=== PATIENT | female | born 1945 | race Caucasian/White ===

== ENCOUNTER → 2017-03-15 | Outpatient (CLI) | payer MEDICARE, BC ==
[2016-02-11 13:45] VITALS: BP 148/79
[~2017-03-15] MED LIST: ANTIVERT12.5 M1 PO; CRANBERRY 100 M1 SGL PO; DAILY VITE1 TA1 PO; DETROL PO; MELOXICAM15 MG PO; MELOXICAM7.5 MG PO; NATURAL E400 IU PO; NEURONTIN300 M1 PO; NEXIUM20 MG PO; NEXIUM40 MG PO; OMEPRAZOLE40 MG PO; SERTRALINE50 MG PO; SIMVASTATIN20 MG PO; VALIUM 5MG T5 MG/TAB PO; VITAMIN D1000 IU PO; ZESTORETIC 10-1 EACH PO; ZOFRAN ODT8 M1 PO
== END ==
LOC: RAD 10:58
DX: R42 Dizziness and giddiness (principal); R11.11 Vomiting without nausea

== ENCOUNTER 2017-04-01 01:42 | Emergency (ER) | payer MEDICARE, BC ==
[~2017-04-01] VITALS: Ht 175.3 cm; Wt 105.5 kg
[~2017-04-01 01:42] MED LIST changes: -OMEPRAZOLE40 MG PO; -ZESTORETIC 10-1 EACH PO
[2017-04-01] MEDS ORDERED: ZESTORETIC 10-1 EACH PO (02:31)
[2017-04-01] MEDS ORDERED: OMEPRAZOLE40 MG PO (02:32)
[2017-04-01 03:34] VITALS: BP 145/63
== END 2017-04-01 03:34 | disposition other institution (70) ==
LOC: ED 01:42
DX: K85.90 Acute pancreatitis without necrosis or infection, unspecified (principal); K21.9 Gastro-esophageal reflux disease without esophagitis; I10 Essential (primary) hypertension
CPT/HCPCS: J2270; J2405

== ENCOUNTER 2017-04-01 03:34 | Inpatient (IN) | payer MEDICARE, BC ==
[2017-04-01] VITALS (7 sets, daily range): BP systolic 133–168; BP diastolic 57–71
[~2017-04-01] VITALS: Ht 172.7 cm; Wt 105.5 kg
[~2017-04-01 03:34] MED LIST changes: +OMEPRAZOLE40 MG PO; +ZESTORETIC 10-1 EACH PO
[2017-04-02 02:40] VITALS: BP 147/66
[2017-04-02 06:25] VITALS: BP 175/73
[2017-04-02 11:15] VITALS: BP 168/75
[2017-04-02 15:11] VITALS: BP 159/71
[2017-04-02 18:13] VITALS: BP 167/66
[2017-04-02 23:39] VITALS: BP 159/74
[2017-04-03 03:14] VITALS: BP 144/71
[2017-04-03 06:32] VITALS: BP 161/80
== END 2017-04-03 09:45 | disposition home or self-care (01) | DRG 444 ==
LOC: MED/SURG 03:34
PROVIDERS: ADMIT Family Medicine
DX: K80.71 Calculus of gallbladder and bile duct without cholecystitis with obstruction (principal); K85.10 Biliary acute pancreatitis without necrosis or infection; K21.9 Gastro-esophageal reflux disease without esophagitis; I10 Essential (primary) hypertension; G62.9 Polyneuropathy, unspecified
CPT/HCPCS: C9113; J2270; J7030; Q9967

== ENCOUNTER → 2017-04-04 | Outpatient (CLI) | payer MEDICARE, BC ==
[2017-04-03 06:32] VITALS: BP 161/80
== END ==
LOC: RAD 03-28 07:00
DX: R42 Dizziness and giddiness (principal); R11.10 Vomiting, unspecified
CPT/HCPCS: A9579

== ENCOUNTER → 2017-05-08 | Outpatient (CLI) | payer MEDICARE, BC | LOC: LAB 07:32 | DX: G62.9 Polyneuropathy, unspecified (principal) ==

== ENCOUNTER → 2017-06-26 | Outpatient (CLI) | payer MEDICARE, BC | LOC: LAB 16:10 | DX: R73.02 Impaired glucose tolerance (oral) (principal) ==

== ENCOUNTER → 2017-11-13 | Outpatient (CLI) | payer MEDICARE, BC | LOC: RAD 11:38 | DX: Z12.31 Encounter for screening mammogram for malignant neoplasm of breast (principal) ==

== ENCOUNTER → 2017-11-14 | Outpatient (CLI) | payer MEDICARE, BC ==
[2017-11-14 09:07] LABS: HEMATOCRIT 45.5 % (37.0-47.0); HEMOGLOBIN 14.7 g/dL (12.5-16.0); MEAN CELL VOLUME 95 fl (78-100); MEAN CORPUSCULAR HEMOGLOBIN 31 pg (27-31); MEAN CORPUSCULAR HGB CONC 32 g/dL (33-37); MEAN PLATELET VOLUME 10.1 fl (7.4-10.4); PLATELET COUNT 258 K/mm3 (130-400); RED BLOOD COUNT 4.81 M/mm3 (4.10-5.30); RED CELL DISTRIBUTION WIDTH 12.8 % (11.5-14.5); WHITE BLOOD COUNT 5.2 K/mm3 (4.8-10.8)
[2017-11-14 09:22] LABS: ALBUMIN 4.2 g/dL (3.5-5.0); BUN/CREATININE RATIO 19.5 (6.0-26.0); CALCIUM 9.5 mg/dL (8.4-10.2); POTASSIUM 4.1 mmol/L (3.6-5.0); TOTAL BILIRUBIN 0.5 mg/dL (0.2-1.3); TOTAL PROTEIN 7.1 g/dL (6.3-8.2)
[2017-11-14 09:31] LABS: LYMPHOCYTE 21 % (20-51); MONOCYTE 12 % (3-10); NEUTROPHILS 60 % (42-75)
== END ==
LOC: LAB 08:36
PROVIDERS: Nurse Practitioner Family
DX: R73.02 Impaired glucose tolerance (oral) (principal); E78.2 Mixed hyperlipidemia; K21.9 Gastro-esophageal reflux disease without esophagitis; G62.9 Polyneuropathy, unspecified

== ENCOUNTER → 2018-03-20 | Outpatient (CLI) | payer MEDICARE, BC ==
[2018-03-21 01:23] LABS: T3 TOTAL 110 ng/dL (87-178)
== END ==
LOC: LAB 11:11
PROVIDERS: Nurse Practitioner Family
DX: R25.1 Tremor, unspecified (principal)

== ENCOUNTER → 2018-06-27 | Outpatient (CLI) | payer MEDICARE, BC | LOC: RAD 15:05 | DX: M19.011 Primary osteoarthritis, right shoulder (principal) ==

== ENCOUNTER → 2018-06-28 | Outpatient (CLI) | payer MEDICARE, BC ==
[2018-06-28 08:03] LABS: EOS # 0.2 (0.04-0.40); EOS % 4.1 % (1.0-5.0); HEMATOCRIT 42.8 % (37.0-47.0); HEMOGLOBIN 14.3 g/dL (12.5-16.0); LYMPH# 1.3 (1.50-4.00); MEAN CELL VOLUME 94 fl (78-100); MEAN CORPUSCULAR HEMOGLOBIN 31 pg (27-31); MEAN CORPUSCULAR HGB CONC 33 g/dL (33-37); MEAN PLATELET VOLUME 9.8 fl (7.4-10.4); MONO # 0.5 (0.20-0.80); NEU # 2.6 (1.40-6.50); PLATELET COUNT 252 K/mm3 (130-400); RED BLOOD COUNT 4.55 M/mm3 (4.10-5.30); RED CELL DISTRIBUTION WIDTH 12.9 % (11.5-14.5); WHITE BLOOD COUNT 4.6 K/mm3 (4.8-10.8)
[2018-06-28 08:11] LABS: ALBUMIN 4.1 g/dL (3.5-5.0); CALCIUM 9.2 mg/dL (8.4-10.2); TOTAL BILIRUBIN 0.7 mg/dL (0.2-1.3); TOTAL PROTEIN 6.8 g/dL (6.3-8.2)
== END ==
LOC: LAB 07:37
PROVIDERS: Physician Assistant
DX: M25.511 Pain in right shoulder (principal); N95.1 Menopausal and female climacteric states; R06.09 Other forms of dyspnea

== ENCOUNTER → 2018-07-05 | Outpatient (CLI) | payer MEDICARE, BC ==
[~2018-07-05] VITALS: Ht 172.7 cm; Wt 109.1 kg
[~2018-07-05] MED LIST changes: +AMOXICILLIN 50500 MG PO; +CELEBREX 1100 MG/CAP PO; +MOTION SICKNESS25 M5 PO; +SERTRALINE HYD100 MG PO; +SIMVASTATIN20 M1 PO; +VITAMIN E100 UNI1 PO
[2018-07-05 14:23] VITALS: BP 122/69
== END ==
LOC: AMSURD 14:03
DX: I10 Essential (primary) hypertension (principal); E78.2 Mixed hyperlipidemia; K21.9 Gastro-esophageal reflux disease without esophagitis; R13.10 Dysphagia, unspecified; R06.09 Other forms of dyspnea; M25.511 Pain in right shoulder; G89.29 Other chronic pain; M19.90 Unspecified osteoarthritis, unspecified site

== ENCOUNTER → 2018-07-25 | Outpatient (CLI) | payer MEDICARE, BC ==
[2018-07-05 14:23] VITALS: BP 122/69
[2018-07-25 16:03] LABS: HEMATOCRIT 45.8 % (37.0-47.0); HEMOGLOBIN 15.1 g/dL (12.5-16.0); RED BLOOD COUNT 4.97 M/mm3 (4.10-5.30); WHITE BLOOD COUNT 5.5 K/mm3 (4.8-10.8)
[2018-07-25 16:11] LABS: CALCIUM 9.4 mg/dL (8.4-10.2); POTASSIUM 3.9 mmol/L (3.6-5.0)
== END ==
LOC: LAB 15:45
PROVIDERS: Internal Medicine Cardiovascular Disease
DX: Z01.812 Encounter for preprocedural laboratory examination (principal); R06.02 Shortness of breath

== ENCOUNTER → 2018-09-03 | Day surgery (SDC) | payer MEDICARE, BC ==
[2018-07-05 14:23] VITALS: BP 122/69
== END ==
LOC: MSO 09:34
DX: K22.2 Esophageal obstruction (principal); K21.9 Gastro-esophageal reflux disease without esophagitis; K44.9 Diaphragmatic hernia without obstruction or gangrene
CPT/HCPCS: J2704; J7120

== ENCOUNTER → 2018-10-25 | Outpatient (CLI) | payer MEDICARE, BC ==
[2018-07-05 14:23] VITALS: BP 122/69
== END ==
LOC: RAD 11:37
DX: M19.012 Primary osteoarthritis, left shoulder (principal)

== ENCOUNTER → 2018-11-19 | Outpatient (CLI) | payer MEDICARE, BC ==
[2018-07-05 14:23] VITALS: BP 122/69
== END ==
LOC: MAMMO 13:54
DX: Z12.31 Encounter for screening mammogram for malignant neoplasm of breast (principal); N63.10 Unspecified lump in the right breast, unspecified quadrant; N63.20 Unspecified lump in the left breast, unspecified quadrant

== ENCOUNTER → 2018-11-19 | Outpatient (CLI) | payer MEDICARE, BC ==
[2018-07-05 14:23] VITALS: BP 122/69
== END ==
LOC: RAD 13:59 → MAMMO 14:45
DX: Z13.820 Encounter for screening for osteoporosis (principal); M85.852 Other specified disorders of bone density and structure, left thigh; M85.88 Other specified disorders of bone density and structure, other site; M25.512 Pain in left shoulder

== ENCOUNTER → 2018-11-21 | Outpatient (CLI) | payer MEDICARE, BC ==
[2018-07-05 14:23] VITALS: BP 122/69
== END ==
LOC: RAD 11:48
DX: N63.20 Unspecified lump in the left breast, unspecified quadrant (principal); N60.11 Diffuse cystic mastopathy of right breast

== ENCOUNTER 2019-01-27 21:01 | Emergency (ER) | payer MEDICARE, BC ==
[~2019-01-27] VITALS: Ht 172.7 cm; Wt 106.8 kg
[2019-01-27 22:11] LABS: HEMATOCRIT 41.4 % (37.0-47.0); HEMOGLOBIN 13.3 g/dL (12.5-16.0); MEAN CELL VOLUME 94 fl (78-100); MEAN CORPUSCULAR HEMOGLOBIN 30 pg (27-31); MEAN CORPUSCULAR HGB CONC 32 g/dL (33-37); MEAN PLATELET VOLUME 10.1 fl (7.4-10.4); PLATELET COUNT 188 K/mm3 (130-400); RED BLOOD COUNT 4.39 M/mm3 (4.10-5.30); RED CELL DISTRIBUTION WIDTH 13.3 % (11.5-14.5); WHITE BLOOD COUNT 10.8 K/mm3 (4.8-10.8)
[2019-01-27 22:27] LABS: CALCIUM 9.5 mg/dL (8.4-10.2); POTASSIUM 3.4 mmol/L (3.6-5.0)
[2019-01-27 22:50] LABS: BAND 14 % (0-10); LYMPHOCYTE 8 % (20-51); MONOCYTE 21 % (3-10); NEUTROPHILS 55 % (42-75)
[2019-01-27 22:51] LABS: METAMYELOCYTE 1 % (0-0)
[2019-01-27] MEDS ORDERED: NORVASC 5MG5 MG/TAB PO (23:45)
[2019-01-27] MEDS ORDERED: HCTZ 25MG25 MG PO (23:46)
[2019-01-27] MEDS ORDERED: NEURONTIN100 M1 PO (23:46)
[2019-01-27] MEDS ORDERED: MOBIC7.5 MG PO (23:47)
[2019-01-27] MEDS ORDERED: ZOLOFT 50MG50 MG PO (23:47)
[2019-01-27] MEDS ORDERED: LEADER OMEPRAZO20 MG PO (23:47)
[2019-01-27] MEDS ORDERED: VITAMIN D3 COM1 EACH PO (23:48)
[2019-01-27] MEDS ORDERED: VITAMIN E1000 UNIT PO (23:49)
[2019-01-27] MEDS ORDERED: PROCHLORPERAZIN10 M2 PO (23:50)
[2019-01-28 00:20] LABS: URINE APPEARANCE CLEAR; URINE BILIRUBIN NEGATIVE (NEGATIVE); URINE BLOOD NEGATIVE (NEGATIVE); URINE COLOR YELLOW; URINE GLUCOSE NEGATIVE (NEGATIVE); URINE KETONE 1+ (NEGATIVE); URINE NITRATE NEGATIVE (NEGATIVE); URINE PROTEIN(semi-quant) TRACE mg/dL (NEGATIVE); URINE UROBILINOGEN NORMAL (NORMAL)
[2019-01-28 00:21] LABS: URINE LEUKOCYTE ESTERASE NEGATIVE (NEGATIVE); URINE WBC 0-1 /hpf (0-3)
[2019-01-28] MEDS ORDERED: ZOFRAN ODT4 MG PO (00:47)
[2019-01-28 01:10] VITALS: BP 146/73
== END 2019-01-28 01:16 | disposition home or self-care (01) ==
LOC: ED 21:01
PROVIDERS: Nurse Practitioner
DX: R11.2 Nausea with vomiting, unspecified (principal); K21.9 Gastro-esophageal reflux disease without esophagitis; G62.9 Polyneuropathy, unspecified; Z88.2 Allergy status to sulfonamides; Z90.710 Acquired absence of both cervix and uterus; Z96.653 Presence of artificial knee joint, bilateral
CPT/HCPCS: J2405; J2550; J7030

== ENCOUNTER → 2019-02-06 | Outpatient (CLI) | payer MEDICARE, BC ==
[2019-01-28 01:10] VITALS: BP 146/73
[~2019-02-06] MED LIST changes: +HCTZ 25MG25 MG PO; +LEADER OMEPRAZO20 MG PO; +MOBIC7.5 MG PO; +NEURONTIN100 M1 PO; +NORVASC 5MG5 MG/TAB PO; +PROCHLORPERAZIN10 M2 PO; +VITAMIN D3 COM1 EACH PO; +VITAMIN E1000 UNIT PO; +ZOFRAN ODT4 MG PO; +ZOLOFT 50MG50 MG PO
[2019-02-06 11:36] LABS: BASO # 0.1 (0.02-0.10); EOS % 0.2 % (1.0-5.0); HEMATOCRIT 39.3 % (37.0-47.0); HEMOGLOBIN 12.3 g/dL (12.5-16.0); MEAN CELL VOLUME 96 fl (78-100); MEAN CORPUSCULAR HEMOGLOBIN 30 pg (27-31); MEAN CORPUSCULAR HGB CONC 31 g/dL (33-37); MEAN PLATELET VOLUME 10.3 fl (7.4-10.4); MONO # 0.4 (0.20-0.80); NEU # 3.9 (1.40-6.50); PLATELET COUNT 211 K/mm3 (130-400); RED BLOOD COUNT 4.08 M/mm3 (4.10-5.30); RED CELL DISTRIBUTION WIDTH 13.5 % (11.5-14.5); WHITE BLOOD COUNT 5.1 K/mm3 (4.8-10.8)
[2019-02-06 11:38] LABS: LYMPH# 0.7 (1.50-4.00)
[2019-02-06 11:56] LABS: CALCIUM 9.5 mg/dL (8.4-10.2); TOTAL BILIRUBIN 0.6 mg/dL (0.2-1.3); TOTAL PROTEIN 6.9 g/dL (6.3-8.2)
== END ==
LOC: LAB 11:14
PROVIDERS: Internal Medicine
DX: C50.412 Malignant neoplasm of upper-outer quadrant of left female breast (principal)

== ENCOUNTER → 2019-02-13 | Outpatient (CLI) | payer MEDICARE, BC ==
[2019-01-28 01:10] VITALS: BP 146/73
[2019-02-13 14:57] LABS: HEMATOCRIT 40.2 % (37.0-47.0); HEMOGLOBIN 12.8 g/dL (12.5-16.0); MEAN CELL VOLUME 96 fl (78-100); MEAN CORPUSCULAR HEMOGLOBIN 31 pg (27-31); MEAN CORPUSCULAR HGB CONC 32 g/dL (33-37); MEAN PLATELET VOLUME 10.1 fl (7.4-10.4); PLATELET COUNT 282 K/mm3 (130-400); RED BLOOD COUNT 4.17 M/mm3 (4.10-5.30); RED CELL DISTRIBUTION WIDTH 13.9 % (11.5-14.5)
[2019-02-13 15:03] LABS: ALBUMIN 3.9 g/dL (3.5-5.0); POTASSIUM 3.5 mmol/L (3.6-5.0); TOTAL BILIRUBIN 0.9 mg/dL (0.2-1.3); TOTAL PROTEIN 6.3 g/dL (6.3-8.2)
[2019-02-13 15:10] LABS: WHITE BLOOD COUNT 24.2 K/mm3 (4.8-10.8)
[2019-02-13 15:28] LABS: NEUTROPHILS 95 % (42-75)
[2019-02-13 15:30] LABS: LYMPHOCYTE 4 % (20-51); MONOCYTE 1 % (3-10)
== END ==
LOC: LAB 14:21
PROVIDERS: Internal Medicine
DX: C50.412 Malignant neoplasm of upper-outer quadrant of left female breast (principal)

== ENCOUNTER → 2019-02-20 | Outpatient (CLI) | payer MEDICARE, BC ==
[2019-01-28 01:10] VITALS: BP 146/73
[2019-02-20 11:03] LABS: HEMATOCRIT 42.7 % (37.0-47.0); HEMOGLOBIN 13.2 g/dL (12.5-16.0); MEAN CELL VOLUME 97 fl (78-100); MEAN CORPUSCULAR HEMOGLOBIN 30 pg (27-31); MEAN CORPUSCULAR HGB CONC 31 g/dL (33-37); MEAN PLATELET VOLUME 10.3 fl (7.4-10.4); PLATELET COUNT 192 K/mm3 (130-400); RED CELL DISTRIBUTION WIDTH 14.1 % (11.5-14.5); WHITE BLOOD COUNT 12.1 K/mm3 (4.8-10.8)
[2019-02-20 11:14] LABS: ALBUMIN 3.9 g/dL (3.4-4.8); CALCIUM 9.6 mg/dL (8.4-10.2); POTASSIUM 3.1 mmol/L (3.5-5.1); TOTAL BILIRUBIN 0.3 mg/dL (0.2-1.2); TOTAL PROTEIN 6.6 g/dL (6.2-8.1)
[2019-02-20 11:29] LABS: BAND 12 % (0-10); LYMPHOCYTE 10 % (20-51); MONOCYTE 9 % (3-10); NEUTROPHILS 69 % (42-75)
== END ==
LOC: LAB 10:39
PROVIDERS: Internal Medicine
DX: C50.412 Malignant neoplasm of upper-outer quadrant of left female breast (principal)

== ENCOUNTER → 2019-02-27 | Outpatient (CLI) | payer MEDICARE, BC ==
[2019-01-28 01:10] VITALS: BP 146/73
[2019-02-27 11:18] LABS: BASO # 0.1 (0.02-0.10); EOS % 0.4 % (1.0-5.0); HEMATOCRIT 38.6 % (37.0-47.0); HEMOGLOBIN 12.1 g/dL (12.5-16.0); LYMPH# 0.8 (1.50-4.00); MEAN CELL VOLUME 96 fl (78-100); MEAN CORPUSCULAR HEMOGLOBIN 30 pg (27-31); MEAN CORPUSCULAR HGB CONC 31 g/dL (33-37); MONO # 0.3 (0.20-0.80); NEU # 3.3 (1.40-6.50); PLATELET COUNT 143 K/mm3 (130-400); RED BLOOD COUNT 4.01 M/mm3 (4.10-5.30); RED CELL DISTRIBUTION WIDTH 14.2 % (11.5-14.5); WHITE BLOOD COUNT 4.5 K/mm3 (4.8-10.8)
[2019-02-27 11:27] LABS: ALBUMIN 3.7 g/dL (3.4-4.8); CALCIUM 9.7 mg/dL (8.4-10.2); POTASSIUM 3.9 mmol/L (3.5-5.1); TOTAL BILIRUBIN 0.4 mg/dL (0.2-1.2); TOTAL PROTEIN 6.2 g/dL (6.2-8.1)
== END ==
LOC: LAB 10:52
PROVIDERS: Internal Medicine
DX: C50.412 Malignant neoplasm of upper-outer quadrant of left female breast (principal)

== ENCOUNTER → 2019-03-06 | Outpatient (CLI) | payer MEDICARE, BC ==
[2019-03-06 11:53] LABS: HEMATOCRIT 39.5 % (37.0-47.0); HEMOGLOBIN 12.4 g/dL (12.5-16.0); MEAN CELL VOLUME 99 fl (78-100); MEAN CORPUSCULAR HEMOGLOBIN 31 pg (27-31); MEAN CORPUSCULAR HGB CONC 31 g/dL (33-37); MEAN PLATELET VOLUME 9.6 fl (7.4-10.4); PLATELET COUNT 185 K/mm3 (130-400); RED CELL DISTRIBUTION WIDTH 15.1 % (11.5-14.5); WHITE BLOOD COUNT 16.9 K/mm3 (4.8-10.8)
[2019-03-06 12:21] LABS: BAND 9 % (0-10); LYMPHOCYTE 3 % (20-51); NEUTROPHILS 88 % (42-75)
[2019-03-06 12:22] LABS: ALBUMIN 3.7 g/dL (3.4-4.8); OVALOCYTES 1+; POTASSIUM 3.5 mmol/L (3.5-5.1); TOTAL BILIRUBIN 0.7 mg/dL (0.2-1.2); TOTAL PROTEIN 5.9 g/dL (6.2-8.1)
== END ==
LOC: LAB 11:44
PROVIDERS: Internal Medicine
DX: C50.412 Malignant neoplasm of upper-outer quadrant of left female breast (principal)

== ENCOUNTER → 2019-03-13 | Outpatient (CLI) | payer MEDICARE, BC ==
[2019-03-13 12:47] LABS: HEMATOCRIT 39.1 % (37.0-47.0); HEMOGLOBIN 12.2 g/dL (12.5-16.0); MEAN CELL VOLUME 98 fl (78-100); MEAN CORPUSCULAR HEMOGLOBIN 30 pg (27-31); MEAN CORPUSCULAR HGB CONC 31 g/dL (33-37); MEAN PLATELET VOLUME 9.4 fl (7.4-10.4); PLATELET COUNT 245 K/mm3 (130-400); RED BLOOD COUNT 4.01 M/mm3 (4.10-5.30); RED CELL DISTRIBUTION WIDTH 14.7 % (11.5-14.5); WHITE BLOOD COUNT 9.1 K/mm3 (4.8-10.8)
[2019-03-13 13:10] LABS: ALBUMIN 3.7 g/dL (3.4-4.8); CALCIUM 9.4 mg/dL (8.3-10.5); POTASSIUM 3.6 mmol/L (3.5-5.1); TOTAL BILIRUBIN 0.3 mg/dL (0.2-1.2); TOTAL PROTEIN 6.3 g/dL (6.2-8.1)
[2019-03-13 13:38] LABS: BAND 3 % (0-10); LYMPHOCYTE 9 % (20-51); MONOCYTE 3 % (3-10); NEUTROPHILS 84 % (42-75)
[2019-03-13 13:40] LABS: HYPOCHROMIA 1+
== END ==
LOC: LAB 12:34
PROVIDERS: Internal Medicine
DX: C50.412 Malignant neoplasm of upper-outer quadrant of left female breast (principal)

== ENCOUNTER → 2019-03-20 | Outpatient (CLI) | payer MEDICARE, BC ==
[2019-03-20 12:01] LABS: EOS % 0.2 % (1.0-5.0); HEMATOCRIT 37.9 % (37.0-47.0); HEMOGLOBIN 11.8 g/dL (12.5-16.0); MEAN CELL VOLUME 97 fl (78-100); MEAN CORPUSCULAR HEMOGLOBIN 30 pg (27-31); MEAN CORPUSCULAR HGB CONC 31 g/dL (33-37); MEAN PLATELET VOLUME 9.6 fl (7.4-10.4); MONO # 0.7 (0.20-0.80); NEU # 4.5 (1.40-6.50); PLATELET COUNT 170 K/mm3 (130-400); RED BLOOD COUNT 3.91 M/mm3 (4.10-5.30); WHITE BLOOD COUNT 5.9 K/mm3 (4.8-10.8)
[2019-03-20 12:05] LABS: LYMPH# 0.7 (1.50-4.00)
[2019-03-20 12:22] LABS: ALBUMIN 3.6 g/dL (3.4-4.8); CALCIUM 9.6 mg/dL (8.3-10.5); POTASSIUM 3.8 mmol/L (3.5-5.1); TOTAL BILIRUBIN 0.4 mg/dL (0.2-1.2); TOTAL PROTEIN 6.1 g/dL (6.2-8.1)
== END ==
LOC: LAB 11:45
PROVIDERS: Internal Medicine
DX: C50.412 Malignant neoplasm of upper-outer quadrant of left female breast (principal)

== ENCOUNTER → 2019-03-27 | Outpatient (CLI) | payer MEDICARE, BC ==
[2019-03-27 12:57] LABS: ALBUMIN 3.7 g/dL (3.4-4.8); CALCIUM 8.9 mg/dL (8.3-10.5); POTASSIUM 3.6 mmol/L (3.5-5.1); TOTAL BILIRUBIN 0.7 mg/dL (0.2-1.2); TOTAL PROTEIN 6.1 g/dL (6.2-8.1)
[2019-03-27 13:19] LABS: HEMATOCRIT 39.3 % (37.0-47.0); HEMOGLOBIN 12.3 g/dL (12.5-16.0); MEAN CELL VOLUME 98 fl (78-100); MEAN CORPUSCULAR HEMOGLOBIN 31 pg (27-31); MEAN CORPUSCULAR HGB CONC 31 g/dL (33-37); MEAN PLATELET VOLUME 10.4 fl (7.4-10.4); PLATELET COUNT 200 K/mm3 (130-400); RED BLOOD COUNT 4.02 M/mm3 (4.10-5.30); RED CELL DISTRIBUTION WIDTH 15.7 % (11.5-14.5)
[2019-03-27 13:28] LABS: WHITE BLOOD COUNT 24.1 K/mm3 (4.8-10.8)
[2019-03-27 14:18] LABS: BAND 4 % (0-10); LYMPHOCYTE 2 % (20-51); METAMYELOCYTE 4 % (0-0); NEUTROPHILS 90 % (42-75)
== END ==
LOC: LAB 12:26
PROVIDERS: Internal Medicine
DX: C50.412 Malignant neoplasm of upper-outer quadrant of left female breast (principal)

== ENCOUNTER → 2019-04-03 | Outpatient (CLI) | payer MEDICARE, BC ==
[2019-04-03 11:35] LABS: HEMATOCRIT 38.2 % (37.0-47.0); HEMOGLOBIN 11.9 g/dL (12.5-16.0); MEAN CELL VOLUME 98 fl (78-100); MEAN CORPUSCULAR HEMOGLOBIN 31 pg (27-31); MEAN CORPUSCULAR HGB CONC 31 g/dL (33-37); MEAN PLATELET VOLUME 9.8 fl (7.4-10.4); PLATELET COUNT 233 K/mm3 (130-400); RED BLOOD COUNT 3.89 M/mm3 (4.10-5.30); RED CELL DISTRIBUTION WIDTH 15.5 % (11.5-14.5); WHITE BLOOD COUNT 10.3 K/mm3 (4.8-10.8)
[2019-04-03 11:38] LABS: ALBUMIN 3.6 g/dL (3.4-4.8); POTASSIUM 3.5 mmol/L (3.5-5.1)
[2019-04-03 11:39] LABS: CALCIUM 9.5 mg/dL (8.3-10.5)
[2019-04-03 11:41] LABS: TOTAL PROTEIN 6.2 g/dL (6.2-8.1)
[2019-04-03 11:43] LABS: TOTAL BILIRUBIN 0.3 mg/dL (0.2-1.2)
[2019-04-03 12:09] LABS: BAND 5 % (0-10)
[2019-04-03 12:10] LABS: LYMPHOCYTE 4 % (20-51); MONOCYTE 12 % (3-10); NEUTROPHILS 76 % (42-75)
[2019-04-03 12:12] LABS: HYPOCHROMIA 1+
== END ==
LOC: LAB 11:19
PROVIDERS: Internal Medicine
DX: C50.412 Malignant neoplasm of upper-outer quadrant of left female breast (principal)

== ENCOUNTER → 2019-04-10 | Outpatient (CLI) | payer MEDICARE, BC ==
[2019-04-10 11:43] LABS: HEMOGLOBIN 11.7 g/dL (12.5-16.0); MEAN CELL VOLUME 98 fl (78-100); MEAN CORPUSCULAR HEMOGLOBIN 30 pg (27-31); MEAN CORPUSCULAR HGB CONC 31 g/dL (33-37); MEAN PLATELET VOLUME 9.7 fl (7.4-10.4); PLATELET COUNT 187 K/mm3 (130-400); RED BLOOD COUNT 3.87 M/mm3 (4.10-5.30); RED CELL DISTRIBUTION WIDTH 15.7 % (11.5-14.5); WHITE BLOOD COUNT 7.3 K/mm3 (4.8-10.8)
[2019-04-10 11:52] LABS: ALBUMIN 3.6 g/dL (3.4-4.8)
[2019-04-10 11:53] LABS: POTASSIUM 4.1 mmol/L (3.5-5.1)
[2019-04-10 11:54] LABS: CALCIUM 9.3 mg/dL (8.3-10.5)
[2019-04-10 11:55] LABS: TOTAL PROTEIN 6.3 g/dL (6.2-8.1)
[2019-04-10 11:57] LABS: TOTAL BILIRUBIN 0.4 mg/dL (0.2-1.2)
[2019-04-10 12:30] LABS: LYMPHOCYTE 14 % (20-51); NEUTROPHILS 78 % (42-75)
[2019-04-10 12:32] LABS: MONOCYTE 7 % (3-10)
== END ==
LOC: LAB 11:31
PROVIDERS: Internal Medicine
DX: C50.412 Malignant neoplasm of upper-outer quadrant of left female breast (principal)

== ENCOUNTER → 2019-08-19 | Outpatient (CLI) | payer MEDICARE, BC ==
[2019-08-19 12:16] LABS: ALBUMIN 4.1 g/dL (3.4-4.8); POTASSIUM 3.9 mmol/L (3.5-5.1)
[2019-08-19 12:17] LABS: CALCIUM 9.6 mg/dL (8.3-10.5)
[2019-08-19 12:19] LABS: TOTAL PROTEIN 6.8 g/dL (6.2-8.1)
[2019-08-19 12:20] LABS: TOTAL BILIRUBIN 0.5 mg/dL (0.2-1.2)
== END ==
LOC: LAB 11:48
PROVIDERS: Internal Medicine
DX: C50.412 Malignant neoplasm of upper-outer quadrant of left female breast (principal)

== ENCOUNTER → 2019-12-08 | Outpatient (CLI) | payer MEDICARE, BC ==
[2019-12-08 13:38] LABS: HEMATOCRIT 44.4 % (37.0-47.0); HEMOGLOBIN 14.1 g/dL (12.5-16.0); MEAN CELL VOLUME 94 fl (78-100); MEAN CORPUSCULAR HEMOGLOBIN 30 pg (27-31); MEAN CORPUSCULAR HGB CONC 32 g/dL (33-37); MEAN PLATELET VOLUME 9.5 fl (7.4-10.4); PLATELET COUNT 224 K/mm3 (130-400); RED BLOOD COUNT 4.71 M/mm3 (4.10-5.30); WHITE BLOOD COUNT 4.5 K/mm3 (4.8-10.8)
[2019-12-08 13:40] LABS: ALBUMIN 4.3 g/dL (3.4-4.8); POTASSIUM 3.7 mmol/L (3.5-5.1)
[2019-12-08 13:41] LABS: CALCIUM 9.5 mg/dL (8.3-10.5)
[2019-12-08 13:42] LABS: TOTAL PROTEIN 6.8 g/dL (6.2-8.1)
[2019-12-08 13:44] LABS: TOTAL BILIRUBIN 0.4 mg/dL (0.2-1.2)
[2019-12-08 13:45] LABS: LYMPHOCYTE 21 % (20-51); MONOCYTE 14 % (3-10)
[2019-12-08 13:46] LABS: NEUTROPHILS 61 % (42-75)
== END ==
LOC: LAB 13:18
PROVIDERS: Internal Medicine
DX: C50.412 Malignant neoplasm of upper-outer quadrant of left female breast (principal)

== ENCOUNTER → 2019-12-10 | Day surgery (SDC) | payer MEDICARE, BC | LOC: MSO 08:24 | DX: H25.11 Age-related nuclear cataract, right eye (principal); M79.7 Fibromyalgia; Z88.2 Allergy status to sulfonamides; I10 Essential (primary) hypertension; K21.9 Gastro-esophageal reflux disease without esophagitis; Z85.3 Personal history of malignant neoplasm of breast; Z90.12 Acquired absence of left breast and nipple; M19.90 Unspecified osteoarthritis, unspecified site | CPT/HCPCS: 00142; J0171; J2250; V2632 ==

== ENCOUNTER → 2019-12-18 | Outpatient (CLI) | payer MEDICARE, BC | LOC: RAD 07:48 | DX: C50.412 Malignant neoplasm of upper-outer quadrant of left female breast (principal); G95.89 Other specified diseases of spinal cord; K44.9 Diaphragmatic hernia without obstruction or gangrene; N20.0 Calculus of kidney; Z90.710 Acquired absence of both cervix and uterus; Z90.49 Acquired absence of other specified parts of digestive tract; M89.8X8 Other specified disorders of bone, other site | CPT/HCPCS: Q9967 ==

== ENCOUNTER → 2020-03-22 | Outpatient (CLI) | payer MEDICARE, BC ==
[2020-03-22 11:16] LABS: EOS # 0.2 (0.04-0.40); EOS % 3.3 % (1.0-5.0); HEMATOCRIT 44.2 % (37.0-47.0); HEMOGLOBIN 14.1 g/dL (12.5-16.0); LYMPH# 0.8 (1.50-4.00); MEAN CELL VOLUME 94 fl (78-100); MEAN CORPUSCULAR HEMOGLOBIN 30 pg (27-31); MEAN CORPUSCULAR HGB CONC 32 g/dL (33-37); MEAN PLATELET VOLUME 9.2 fl (7.4-10.4); MONO # 0.4 (0.20-0.80); NEU # 3.1 (1.40-6.50); PLATELET COUNT 229 K/mm3 (130-400); RED CELL DISTRIBUTION WIDTH 13.3 % (11.5-14.5); WHITE BLOOD COUNT 4.5 K/mm3 (4.8-10.8)
[2020-03-22 11:46] LABS: ALBUMIN 4.4 g/dL (3.4-4.8); POTASSIUM 3.7 mmol/L (3.5-5.1)
[2020-03-22 11:49] LABS: TOTAL PROTEIN 6.9 g/dL (6.2-8.1)
[2020-03-22 11:50] LABS: TOTAL BILIRUBIN 0.5 mg/dL (0.2-1.2)
== END ==
LOC: LAB 11:05
PROVIDERS: Internal Medicine
DX: C50.412 Malignant neoplasm of upper-outer quadrant of left female breast (principal)

== ENCOUNTER → 2020-05-18 | Outpatient (CLI) | payer MEDICARE, BC | LOC: RAD 16:17 | DX: M19.011 Primary osteoarthritis, right shoulder (principal); M19.012 Primary osteoarthritis, left shoulder ==

== ENCOUNTER → 2020-07-27 | Outpatient (CLI) | payer MEDICARE, BC ==
[2020-07-27 11:32] LABS: EOS # 0.2 (0.04-0.40); EOS % 3.8 % (1.0-5.0); HEMATOCRIT 41.8 % (37.0-47.0); HEMOGLOBIN 13.3 g/dL (12.5-16.0); MEAN CELL VOLUME 98 fl (78-100); MEAN CORPUSCULAR HEMOGLOBIN 31 pg (27-31); MEAN CORPUSCULAR HGB CONC 32 g/dL (33-37); MEAN PLATELET VOLUME 9.2 fl (7.4-10.4); MONO # 0.4 (0.20-0.80); PLATELET COUNT 235 K/mm3 (130-400); RED BLOOD COUNT 4.27 M/mm3 (4.10-5.30); WHITE BLOOD COUNT 4.3 K/mm3 (4.8-10.8)
[2020-07-27 11:38] LABS: ALBUMIN 4.1 g/dL (3.4-4.8); POTASSIUM 4.2 mmol/L (3.5-5.1)
[2020-07-27 11:39] LABS: CALCIUM 9.5 mg/dL (8.3-10.5)
[2020-07-27 11:40] LABS: LYMPH# 0.7 (1.50-4.00); TOTAL PROTEIN 6.6 g/dL (6.2-8.1)
[2020-07-27 11:42] LABS: TOTAL BILIRUBIN 0.5 mg/dL (0.2-1.2)
== END ==
LOC: LAB 10:54
PROVIDERS: Internal Medicine
DX: C50.412 Malignant neoplasm of upper-outer quadrant of left female breast (principal)

== ENCOUNTER → 2020-08-09 | Outpatient (CLI) | payer MEDICARE, BC | LOC: RAD 09:59 | DX: M79.621 Pain in right upper arm (principal); Z85.3 Personal history of malignant neoplasm of breast ==

== ENCOUNTER → 2020-11-09 | Outpatient (CLI) | payer MEDICARE, BC | LOC: RAD 16:41 | DX: M13.851 Other specified arthritis, right hip (principal); M88.88 Osteitis deformans of other bones ==

== ENCOUNTER → 2020-11-24 | Outpatient (CLI) | payer MEDICARE, BC | LOC: MAMMO 11:30 | DX: Z12.31 Encounter for screening mammogram for malignant neoplasm of breast (principal); N63.10 Unspecified lump in the right breast, unspecified quadrant; Z85.3 Personal history of malignant neoplasm of breast; Z98.890 Other specified postprocedural states; Z92.3 Personal history of irradiation ==

== ENCOUNTER → 2020-11-24 | Outpatient (CLI) | payer MEDICARE, BC ==
[2020-11-24 12:32] LABS: EOS # 0.2 (0.04-0.40); EOS % 3.1 % (1.0-5.0); HEMATOCRIT 45.8 % (37.0-47.0); HEMOGLOBIN 14.6 g/dL (12.5-16.0); LYMPH# 0.9 (1.50-4.00); MEAN CELL VOLUME 96 fl (78-100); MEAN CORPUSCULAR HEMOGLOBIN 31 pg (27-31); MEAN CORPUSCULAR HGB CONC 32 g/dL (33-37); MEAN PLATELET VOLUME 9.4 fl (7.4-10.4); MONO # 0.7 (0.20-0.80); PLATELET COUNT 287 K/mm3 (130-400); RED BLOOD COUNT 4.75 M/mm3 (4.10-5.30); WHITE BLOOD COUNT 5.7 K/mm3 (4.8-10.8)
[2020-11-24 12:47] LABS: ALBUMIN 4.1 g/dL (3.4-4.8); POTASSIUM 3.9 mmol/L (3.5-5.1)
[2020-11-24 12:49] LABS: CALCIUM 9.2 mg/dL (8.3-10.5)
[2020-11-24 12:50] LABS: TOTAL PROTEIN 6.7 g/dL (6.2-8.1)
[2020-11-24 12:52] LABS: TOTAL BILIRUBIN 0.6 mg/dL (0.2-1.2)
== END ==
LOC: LAB 12:06
PROVIDERS: Internal Medicine
DX: C50.412 Malignant neoplasm of upper-outer quadrant of left female breast (principal)

== ENCOUNTER → 2020-12-02 | Outpatient (CLI) | payer MEDICARE, BC | LOC: RAD 13:09 | DX: N60.11 Diffuse cystic mastopathy of right breast (principal) ==

== ENCOUNTER → 2021-03-23 | Outpatient (CLI) | payer MEDICARE, BC ==
[2021-03-23 16:59] LABS: BASO # 0.03 (0.02-0.10); EOS # 0.22 (0.04-0.40); EOS % 4.7 % (1.0-5.0); HEMATOCRIT 39.6 % (37.0-47.0); HEMOGLOBIN 12.8 g/dL (12.5-16.0); LYMPH# 1.05 (1.50-4.00); MEAN CELL VOLUME 96 fl (78-100); MEAN CORPUSCULAR HEMOGLOBIN 31 pg (27-31); MEAN CORPUSCULAR HGB CONC 32 g/dL (33-37); MONO # 0.51 (0.20-0.80); NEU # 2.85 (1.40-6.50); PLATELET COUNT 219 K/mm3 (130-400); RED BLOOD COUNT 4.13 M/mm3 (4.10-5.30); RED CELL DISTRIBUTION WIDTH 12.6 % (11.5-14.5); WHITE BLOOD COUNT 4.7 K/mm3 (4.8-10.8)
[2021-03-23 17:06] LABS: POTASSIUM 3.8 mmol/L (3.5-5.1)
[2021-03-23 17:09] LABS: TOTAL PROTEIN 6.7 g/dL (6.2-8.1)
[2021-03-23 17:10] LABS: TOTAL BILIRUBIN 0.3 mg/dL (0.2-1.2)
== END ==
LOC: LAB 16:49
PROVIDERS: Physician Assistant
DX: Z13.29 Encounter for screening for other suspected endocrine disorder (principal); I10 Essential (primary) hypertension; E78.2 Mixed hyperlipidemia; K90.9 Intestinal malabsorption, unspecified

== ENCOUNTER → 2021-04-11 | Outpatient (CLI) | payer MEDICARE, BC ==
[2021-04-11 13:28] LABS: POTASSIUM 3.7 mmol/L (3.5-5.1)
[2021-04-11 13:29] LABS: CALCIUM 8.8 mg/dL (8.3-10.5)
[2021-04-11 13:36] LABS: MAGNESIUM 2.21 mg/dL (1.60-2.60)
[2021-04-12 13:39] LABS: BASO # 0.02 (0.02-0.10); EOS # 0.12 (0.04-0.40); EOS % 2.8 % (1.0-5.0); HEMATOCRIT 42.7 % (37.0-47.0); HEMOGLOBIN 13.1 g/dL (12.5-16.0); LYMPH# 0.74 (1.50-4.00); MEAN CELL VOLUME 101 fl (78-100); MEAN CORPUSCULAR HEMOGLOBIN 31 pg (27-31); MEAN CORPUSCULAR HGB CONC 31 g/dL (33-37); MEAN PLATELET VOLUME 9.9 fl (7.4-10.4); MONO # 0.41 (0.20-0.80); NEU # 2.93 (1.40-6.50); PLATELET COUNT 253 K/mm3 (130-400); RED BLOOD COUNT 4.21 M/mm3 (4.10-5.30); RED CELL DISTRIBUTION WIDTH 13.3 % (11.5-14.5); WHITE BLOOD COUNT 4.2 K/mm3 (4.8-10.8)
[2021-04-12 13:45] LABS: TOTAL PROTEIN 6.5 g/dL (6.2-8.1)
[2021-04-12 13:47] LABS: TOTAL BILIRUBIN 0.5 mg/dL (0.2-1.2)
== END ==
LOC: LAB 10:34
PROVIDERS: Physician Assistant
DX: Z13.29 Encounter for screening for other suspected endocrine disorder (principal); C50.412 Malignant neoplasm of upper-outer quadrant of left female breast; I10 Essential (primary) hypertension; E78.2 Mixed hyperlipidemia

== ENCOUNTER → 2021-05-02 | Outpatient (CLI) | payer MEDICARE, BC ==
[2021-05-02 11:41] LABS: POTASSIUM 4.1 mmol/L (3.5-5.1)
[2021-05-02 11:42] LABS: CALCIUM 9.6 mg/dL (8.3-10.5)
== END ==
LOC: LAB 11:02
PROVIDERS: Physician Assistant
DX: N28.9 Disorder of kidney and ureter, unspecified (principal)

== ENCOUNTER → 2021-05-09 | Day surgery (SDC) | payer MEDICARE, BC | END | disposition home or self-care (01) | LOC: MSO 08:23 | DX: Z12.11 Encounter for screening for malignant neoplasm of colon (principal); D12.3 Benign neoplasm of transverse colon; K57.30 Diverticulosis of large intestine without perforation or abscess without bleeding; I10 Essential (primary) hypertension; K21.9 Gastro-esophageal reflux disease without esophagitis; F32.9 Major depressive disorder, single episode, unspecified; M19.90 Unspecified osteoarthritis, unspecified site; Z85.3 Personal history of malignant neoplasm of breast; Z79.1 Long term (current) use of non-steroidal anti-inflammatories (NSAID); Z79.899 Other long term (current) drug therapy | CPT/HCPCS: 00811; J2704; J7120 ==

== ENCOUNTER → 2021-07-20 | Outpatient (CLI) | payer MEDICARE, BC | LOC: RAD 08:30 | DX: M19.011 Primary osteoarthritis, right shoulder (principal); M16.11 Unilateral primary osteoarthritis, right hip ==

== ENCOUNTER → 2021-09-10 | Outpatient (CLI) | payer MEDICARE, BC | LOC: LAB 10:31 | DX: N39.0 Urinary tract infection, site not specified (principal) ==

== ENCOUNTER → 2021-09-15 | Outpatient (CLI) | payer MEDICARE, BC ==
[2021-09-15 14:46] LABS: URINE APPEARANCE CLEAR; URINE BILIRUBIN NEGATIVE (NEGATIVE); URINE BLOOD NEGATIVE (NEGATIVE); URINE COLOR YELLOW; URINE GLUCOSE NEGATIVE (NEGATIVE); URINE KETONE NEGATIVE (NEGATIVE); URINE LEUKOCYTE ESTERASE TRACE (NEGATIVE); URINE MUCUS PRESENT (NOT PRESENT); URINE NITRATE NEGATIVE (NEGATIVE); URINE PROTEIN(semi-quant) NEGATIVE (NEGATIVE); URINE UROBILINOGEN NORMAL (NORMAL)
== END ==
LOC: LAB 13:44
PROVIDERS: Nurse Practitioner Family
DX: N39.0 Urinary tract infection, site not specified (principal)

== ENCOUNTER → 2021-10-11 | Outpatient (CLI) | payer MEDICARE, BC ==
[2021-10-11 12:17] LABS: BASO # 0.03 K/mm3 (0.02-0.10); EOS # 0.12 K/mm3 (0.04-0.40); EOS % 2.3 % (1.0-5.0); HEMATOCRIT 43.8 % (37.0-47.0); HEMOGLOBIN 13.7 g/dL (12.5-16.0); MEAN CELL VOLUME 97 fl (78-100); MEAN CORPUSCULAR HEMOGLOBIN 30 pg (27-31); MEAN CORPUSCULAR HGB CONC 31 g/dL (33-37); MEAN PLATELET VOLUME 9.2 fl (7.4-10.4); MONO # 0.47 K/mm3 (0.20-0.80); PLATELET COUNT 246 K/mm3 (130-400); WHITE BLOOD COUNT 5.3 K/mm3 (4.8-10.8)
[2021-10-11 12:44] LABS: ALBUMIN 4.1 g/dL (3.4-4.8); POTASSIUM 3.9 mmol/L (3.5-5.1)
[2021-10-11 12:47] LABS: TOTAL PROTEIN 6.9 g/dL (6.2-8.1)
[2021-10-11 12:48] LABS: TOTAL BILIRUBIN 0.5 mg/dL (0.2-1.2)
== END ==
LOC: LAB 11:55
PROVIDERS: Internal Medicine
DX: C50.412 Malignant neoplasm of upper-outer quadrant of left female breast (principal)

== ENCOUNTER → 2021-11-01 | Outpatient (CLI) | payer MEDICARE, BC | LOC: RAD 13:52 → VAS 13:52 → RAD 14:00 | DX: I77.810 Thoracic aortic ectasia (principal) ==

== ENCOUNTER → 2022-01-26 | Outpatient (CLI) | payer MEDICARE, BC | LOC: RAD 13:10 | DX: M19.011 Primary osteoarthritis, right shoulder (principal); M75.81 Other shoulder lesions, right shoulder; M75.51 Bursitis of right shoulder ==

== ENCOUNTER → 2022-03-07 | Outpatient (CLI) | payer MEDICARE, BC ==
[~2022-03-07] MED LIST changes: +ALPRAZOLAM0.5 MG PO; +HYDROCHLOROTHIA1 T14 PO; +MACROBID 100 M100 MG PO; +NEURONTIN300 MG/CAP PO; +PROPRANOLOL HY120 MG PO; +WELLBUTRIN SR150 M2 PO
[2022-03-07 08:59] LABS: BASO # 0.04 K/mm3 (0.02-0.10); EOS # 0.14 K/mm3 (0.04-0.40); EOS % 2.6 % (1.0-5.0); HEMOGLOBIN 14.3 g/dL (12.5-16.0); MEAN CELL VOLUME 97 fl (78-100); MEAN CORPUSCULAR HEMOGLOBIN 31 pg (27-31); MEAN CORPUSCULAR HGB CONC 32 g/dL (33-37); MEAN PLATELET VOLUME 9.6 fl (7.4-10.4); MONO # 0.53 K/mm3 (0.20-0.80); PLATELET COUNT 222 K/mm3 (130-400); RED BLOOD COUNT 4.65 M/mm3 (4.10-5.30); RED CELL DISTRIBUTION WIDTH 13.7 % (11.5-14.5); WHITE BLOOD COUNT 5.3 K/mm3 (4.8-10.8)
[2022-03-07 09:30] LABS: ALBUMIN 4.2 g/dL (3.4-4.8); POTASSIUM 3.8 mmol/L (3.5-5.1)
[2022-03-07 09:31] LABS: CALCIUM 10.1 mg/dL (8.3-10.5)
[2022-03-07 09:32] LABS: TOTAL PROTEIN 6.9 g/dL (6.2-8.1)
[2022-03-07 09:34] LABS: TOTAL BILIRUBIN 0.5 mg/dL (0.2-1.2)
[2022-03-07 09:51] LABS: PARTIAL THROMBOPLASTIN TIME 22.9 SECONDS (21.0-32.0); PROTHROMBIN TIME 9.9 SECONDS (9.0-12.0)
[2022-03-07 10:09] LABS: URINE APPEARANCE CLEAR; URINE BILIRUBIN NEGATIVE (NEGATIVE); URINE BLOOD NEGATIVE (NEGATIVE); URINE COLOR YELLOW; URINE GLUCOSE NEGATIVE (NEGATIVE); URINE KETONE NEGATIVE (NEGATIVE); URINE LEUKOCYTE ESTERASE NEGATIVE (NEGATIVE); URINE NITRATE NEGATIVE (NEGATIVE); URINE PROTEIN(semi-quant) NEGATIVE (NEGATIVE); URINE UROBILINOGEN NORMAL (NORMAL); URINE WBC 0-1 /hpf (0-3)
== END ==
LOC: AMSURD 08:37
PROVIDERS: Physician Assistant
DX: Z01.818 Encounter for other preprocedural examination (principal)

== ENCOUNTER 2022-03-13 09:05 | Emergency (ER) | payer MEDICARE, BC ==
[~2022-03-13] VITALS: Ht 172.7 cm; Wt 90.9 kg
[~2022-03-13 09:05] MED LIST changes: -ALPRAZOLAM0.5 MG PO; -HYDROCHLOROTHIA1 T14 PO; -MACROBID 100 M100 MG PO; -NEURONTIN300 MG/CAP PO; -PROPRANOLOL HY120 MG PO; -WELLBUTRIN SR150 M2 PO
[2022-03-13 09:38] LABS: ALBUMIN 4.4 g/dL (3.4-4.8); POTASSIUM 3.8 mmol/L (3.5-5.1); SODIUM 143 mmol/L (136-145)
[2022-03-13 09:39] LABS: CALCIUM 10.3 mg/dL (8.3-10.5)
[2022-03-13 09:40] LABS: GLUCOSE 110 mg/dL (65-105)
[2022-03-13 09:41] LABS: TOTAL PROTEIN 7.2 g/dL (6.2-8.1)
[2022-03-13 09:42] LABS: CARBON DIOXIDE 22 mmol/L (23-31); TOTAL BILIRUBIN 0.8 mg/dL (0.2-1.2)
[2022-03-13 09:46] LABS: AST-SGOT 19 U/L (5-34); BASO # 0.03 K/mm3 (0.02-0.10); HEMATOCRIT 46.5 % (37.0-47.0); HEMOGLOBIN 15.2 g/dL (12.5-16.0); MEAN CELL VOLUME 94 fl (78-100); MEAN CORPUSCULAR HEMOGLOBIN 31 pg (27-31); MEAN CORPUSCULAR HGB CONC 33 g/dL (33-37); MEAN PLATELET VOLUME 9.5 fl (7.4-10.4); MONO # 0.53 K/mm3 (0.20-0.80); NEU # 3.36 K/mm3 (1.40-6.50); PLATELET COUNT 237 K/mm3 (130-400); RED BLOOD COUNT 4.93 M/mm3 (4.10-5.30); RED CELL DISTRIBUTION WIDTH 13.4 % (11.5-14.5); WHITE BLOOD COUNT 4.9 K/mm3 (4.8-10.8)
[2022-03-13 09:47] LABS: ALT/SGPT 17 U/L (0-55)
[2022-03-13 09:48] LABS: LIPASE 40 U/L (8-78)
[2022-03-13 09:55] LABS: TROPONIN-I < 0.030 ng/mL (<0.030)
[2022-03-13] MEDS ORDERED: PROPRANOLOL HY120 MG PO (10:19)
[2022-03-13] MEDS ORDERED: SERTRALINE HYD100 MG PO (10:19)
[2022-03-13] MEDS ORDERED: OMEPRAZOLE40 MG PO (10:20)
[2022-03-13] MEDS ORDERED: WELLBUTRIN SR150 M2 PO (10:21)
[2022-03-13] MEDS ORDERED: HYDROCHLOROTHIA1 T14 PO (10:22)
[2022-03-13] MEDS ORDERED: MELOXICAM15 MG PO (10:22)
[2022-03-13] MEDS ORDERED: NEURONTIN300 MG/CAP PO (10:24)
[2022-03-13] MEDS ORDERED: ALPRAZOLAM0.5 MG PO (10:26)
[2022-03-13] MEDS ORDERED: SIMVASTATIN20 M1 PO (10:27)
[2022-03-13 11:15] LABS: URINE APPEARANCE CLEAR; URINE BILIRUBIN 2+ (NEGATIVE); URINE BLOOD NEGATIVE (NEGATIVE); URINE COLOR YELLOW; URINE GLUCOSE NEGATIVE (NEGATIVE); URINE KETONE 2+ (NEGATIVE); URINE NITRATE NEGATIVE (NEGATIVE); URINE PROTEIN(semi-quant) TRACE (NEGATIVE); URINE UROBILINOGEN 8 mg/dL (NORMAL)
[2022-03-13 11:16] LABS: URINE LEUKOCYTE ESTERASE 1+ (NEGATIVE); URINE MUCUS PRESENT (NOT PRESENT)
[2022-03-13] MEDS ORDERED: MACROBID 100 M100 MG PO (11:33)
[2022-03-13] MEDS ORDERED: ZOFRAN ODT4 MG PO (11:34)
[2022-03-13 11:42] VITALS: BP 132/63
== END 2022-03-13 12:10 | disposition home or self-care (01) ==
LOC: ED 09:05
PROVIDERS: Nurse Practitioner
DX: N39.0 Urinary tract infection, site not specified (principal); B34.9 Viral infection, unspecified; Z20.822 Contact with and (suspected) exposure to COVID-19
CPT/HCPCS: J2405; J7040

== ENCOUNTER → 2022-03-21 | Outpatient (CLI) | payer MEDICARE, BC ==
[~2022-03-21] MED LIST changes: +ALPRAZOLAM0.5 MG PO; +HYDROCHLOROTHIA1 T14 PO; +MACROBID 100 M100 MG PO; +NEURONTIN300 MG/CAP PO; +PROPRANOLOL HY120 MG PO; +WELLBUTRIN SR150 M2 PO
[2022-03-21 15:17] LABS: URINE APPEARANCE CLEAR; URINE BILIRUBIN NEGATIVE (NEGATIVE); URINE BLOOD NEGATIVE (NEGATIVE); URINE COLOR YELLOW; URINE GLUCOSE NEGATIVE (NEGATIVE); URINE KETONE NEGATIVE (NEGATIVE); URINE LEUKOCYTE ESTERASE 1+ (NEGATIVE); URINE NITRATE NEGATIVE (NEGATIVE); URINE PROTEIN(semi-quant) NEGATIVE (NEGATIVE); URINE UROBILINOGEN NORMAL (NORMAL)
== END ==
LOC: LAB 14:37
PROVIDERS: Orthopaedic Surgery Sports Medicine
DX: Z01.812 Encounter for preprocedural laboratory examination (principal)

== ENCOUNTER → 2022-04-14 | Outpatient (CLI) | payer MEDICARE, BC ==
[2022-04-14 12:39] LABS: BASO # 0.03 K/mm3 (0.02-0.10); EOS # 0.21 K/mm3 (0.04-0.40); EOS % 4.9 % (1.0-5.0); HEMOGLOBIN 13.5 g/dL (12.5-16.0); LYMPH# 0.85 K/mm3 (1.50-4.00); MEAN CELL VOLUME 98 fl (78-100); MEAN CORPUSCULAR HEMOGLOBIN 32 pg (27-31); MEAN CORPUSCULAR HGB CONC 32 g/dL (33-37); MEAN PLATELET VOLUME 9.3 fl (7.4-10.4); MONO # 0.44 K/mm3 (0.20-0.80); NEU # 2.78 K/mm3 (1.40-6.50); PLATELET COUNT 222 K/mm3 (130-400); RED BLOOD COUNT 4.29 M/mm3 (4.10-5.30); WHITE BLOOD COUNT 4.3 K/mm3 (4.8-10.8)
[2022-04-14 12:48] LABS: ALBUMIN 4.1 g/dL (3.4-4.8); POTASSIUM 4.1 mmol/L (3.5-5.1)
[2022-04-14 12:49] LABS: CALCIUM 9.6 mg/dL (8.3-10.5); URINE APPEARANCE CLEAR; URINE COLOR YELLOW
[2022-04-14 12:50] LABS: TOTAL PROTEIN 6.6 g/dL (6.2-8.1); URINE BILIRUBIN NEGATIVE (NEGATIVE); URINE BLOOD NEGATIVE (NEGATIVE); URINE GLUCOSE NEGATIVE (NEGATIVE); URINE KETONE NEGATIVE (NEGATIVE); URINE LEUKOCYTE ESTERASE 1+ (NEGATIVE); URINE NITRATE NEGATIVE (NEGATIVE); URINE PROTEIN(semi-quant) NEGATIVE (NEGATIVE); URINE UROBILINOGEN NORMAL (NORMAL)
[2022-04-14 12:52] LABS: TOTAL BILIRUBIN 0.5 mg/dL (0.2-1.2)
== END ==
LOC: LAB 12:09
PROVIDERS: Orthopaedic Surgery Sports Medicine
DX: Z01.812 Encounter for preprocedural laboratory examination (principal); C50.412 Malignant neoplasm of upper-outer quadrant of left female breast; Z87.440 Personal history of urinary (tract) infections

== ENCOUNTER → 2022-04-24 | Outpatient (CLI) | payer MEDICARE, BC ==
[2022-04-24 11:58] LABS: BASO # 0.05 K/mm3 (0.02-0.10); EOS # 0.14 K/mm3 (0.04-0.40); EOS % 3.1 % (1.0-5.0); HEMATOCRIT 42.7 % (37.0-47.0); HEMOGLOBIN 13.7 g/dL (12.5-16.0); LYMPH# 0.89 K/mm3 (1.50-4.00); MEAN CELL VOLUME 97 fl (78-100); MEAN CORPUSCULAR HEMOGLOBIN 31 pg (27-31); MEAN CORPUSCULAR HGB CONC 32 g/dL (33-37); MONO # 0.45 K/mm3 (0.20-0.80); NEU # 2.94 K/mm3 (1.40-6.50); PLATELET COUNT 224 K/mm3 (130-400); RED BLOOD COUNT 4.39 M/mm3 (4.10-5.30); RED CELL DISTRIBUTION WIDTH 12.7 % (11.5-14.5); WHITE BLOOD COUNT 4.5 K/mm3 (4.8-10.8)
[2022-04-24 13:33] LABS: CALCIUM 9.6 mg/dL (8.3-10.5)
== END ==
LOC: LAB 09:02
PROVIDERS: Family Medicine
DX: N39.0 Urinary tract infection, site not specified (principal); R81 Glycosuria

== ENCOUNTER → 2022-05-01 | Outpatient (CLI) | payer MEDICARE, BC | LOC: RAD 15:00 | DX: R42 Dizziness and giddiness (principal) | CPT/HCPCS: A9575 ==

== ENCOUNTER → 2022-05-11 | Outpatient (CLI) | payer MEDICARE, BC ==
[2022-05-11 11:57] LABS: POTASSIUM 4.1 mmol/L (3.5-5.1)
[2022-05-11 11:58] LABS: CALCIUM 9.8 mg/dL (8.3-10.5)
[2022-05-11 11:59] LABS: TOTAL PROTEIN 6.6 g/dL (6.2-8.1)
[2022-05-11 12:01] LABS: TOTAL BILIRUBIN 0.5 mg/dL (0.2-1.2)
== END ==
LOC: LAB 11:39
PROVIDERS: Internal Medicine
DX: C50.412 Malignant neoplasm of upper-outer quadrant of left female breast (principal)

== ENCOUNTER → 2022-11-03 | Outpatient (CLI) | payer MEDICAID, BC ==
[2022-11-03 14:31] LABS: BASO # 0.02 K/mm3 (0.02-0.10); EOS # 0.26 K/mm3 (0.04-0.40); EOS % 5.2 % (1.0-5.0); HEMATOCRIT 40.7 % (37.0-47.0); HEMOGLOBIN 12.8 g/dL (12.5-16.0); LYMPH# 1.13 K/mm3 (1.50-4.00); MEAN CELL VOLUME 100 fl (78-100); MEAN CORPUSCULAR HEMOGLOBIN 31 pg (27-31); MEAN CORPUSCULAR HGB CONC 31 g/dL (33-37); MEAN PLATELET VOLUME 9.6 fl (7.4-10.4); MONO # 0.55 K/mm3 (0.20-0.80); NEU # 3.05 K/mm3 (1.40-6.50); PLATELET COUNT 225 K/mm3 (130-400); RED BLOOD COUNT 4.09 M/mm3 (4.10-5.30); RED CELL DISTRIBUTION WIDTH 12.7 % (11.5-14.5)
[2022-11-03 14:36] LABS: ALBUMIN 3.8 g/dL (3.4-4.8); POTASSIUM 4.2 mmol/L (3.5-5.1); SODIUM 141 mmol/L (136-145)
[2022-11-03 14:37] LABS: CALCIUM 9.6 mg/dL (8.3-10.5)
[2022-11-03 14:39] LABS: GLUCOSE 86 mg/dL (65-105); TOTAL PROTEIN 6.4 g/dL (6.2-8.1)
[2022-11-03 14:40] LABS: CARBON DIOXIDE 27 mmol/L (23-31); TOTAL BILIRUBIN 0.4 mg/dL (0.2-1.2)
[2022-11-03 14:44] LABS: AST-SGOT 11 U/L (5-34)
[2022-11-03 14:49] LABS: URINE APPEARANCE CLEAR; URINE BILIRUBIN NEGATIVE (NEGATIVE); URINE BLOOD NEGATIVE (NEGATIVE); URINE COLOR YELLOW; URINE GLUCOSE NEGATIVE (NEGATIVE); URINE KETONE NEGATIVE (NEGATIVE); URINE LEUKOCYTE ESTERASE TRACE (NEGATIVE); URINE MUCUS PRESENT (NOT PRESENT); URINE NITRATE NEGATIVE (NEGATIVE); URINE PROTEIN(semi-quant) TRACE (NEGATIVE); URINE UROBILINOGEN NORMAL (NORMAL)
[2022-11-03 15:07] LABS: ALT/SGPT < 6 U/L (0-55)
== END ==
LOC: LAB 14:11
PROVIDERS: Physician Assistant
DX: Z01.812 Encounter for preprocedural laboratory examination (principal); Z01.811 Encounter for preprocedural respiratory examination; M25.511 Pain in right shoulder; I25.10 Atherosclerotic heart disease of native coronary artery without angina pectoris; I10 Essential (primary) hypertension; K21.9 Gastro-esophageal reflux disease without esophagitis; C50.919 Malignant neoplasm of unspecified site of unspecified female breast; G20 Parkinson's disease

== ENCOUNTER → 2022-11-06 | Outpatient (CLI) | payer MEDICARE, BC, MEDICAID ==
[2022-11-06 14:51] LABS: ALBUMIN 3.9 g/dL (3.4-4.8); POTASSIUM 4.3 mmol/L (3.5-5.1); SODIUM 143 mmol/L (136-145)
[2022-11-06 14:53] LABS: CALCIUM 9.5 mg/dL (8.3-10.5)
[2022-11-06 14:54] LABS: GLUCOSE 87 mg/dL (65-105); TOTAL PROTEIN 6.2 g/dL (6.2-8.1)
[2022-11-06 14:55] LABS: CARBON DIOXIDE 24 mmol/L (23-31)
[2022-11-06 14:56] LABS: TOTAL BILIRUBIN 0.4 mg/dL (0.2-1.2)
[2022-11-06 14:59] LABS: AST-SGOT 11 U/L (5-34)
[2022-11-06 15:07] LABS: ALT/SGPT < 6 U/L (0-55)
[2022-11-06 15:38] LABS: BASO # 0.02 K/mm3 (0.02-0.10); EOS # 0.32 K/mm3 (0.04-0.40); EOS % 5.9 % (1.0-5.0); HEMOGLOBIN 12.7 g/dL (12.5-16.0); LYMPH# 1.08 K/mm3 (1.50-4.00); MEAN CELL VOLUME 99 fl (78-100); MEAN CORPUSCULAR HEMOGLOBIN 31 pg (27-31); MEAN CORPUSCULAR HGB CONC 32 g/dL (33-37); MEAN PLATELET VOLUME 10.2 fl (7.4-10.4); NEU # 3.45 K/mm3 (1.40-6.50); PLATELET COUNT 225 K/mm3 (130-400); RED BLOOD COUNT 4.05 M/mm3 (4.10-5.30); RED CELL DISTRIBUTION WIDTH 12.9 % (11.5-14.5); WHITE BLOOD COUNT 5.5 K/mm3 (4.8-10.8)
== END ==
LOC: LAB 14:26
PROVIDERS: Internal Medicine
DX: C50.412 Malignant neoplasm of upper-outer quadrant of left female breast (principal)

== ENCOUNTER → 2022-11-29 | Outpatient (CLI) | payer MEDICARE, BC, MEDICAID | LOC: RAD 08:32 | DX: M19.011 Primary osteoarthritis, right shoulder (principal); Z96.611 Presence of right artificial shoulder joint ==

== ENCOUNTER → 2023-11-12 | Outpatient (CLI) | payer MEDICARE, BC, MEDICAID ==
[2023-11-12 12:16] LABS: BASO # 0.02 K/mm3 (0.02-0.10); EOS # 0.24 K/mm3 (0.04-0.40); HEMATOCRIT 36.7 % (37.0-47.0); LYMPH# 0.73 K/mm3 (1.50-4.00); MEAN CELL VOLUME 89 fl (78-100); MEAN CORPUSCULAR HEMOGLOBIN 27 pg (27-31); MEAN CORPUSCULAR HGB CONC 30 g/dL (33-37); MEAN PLATELET VOLUME 9.2 fl (7.4-10.4); MONO # 0.54 K/mm3 (0.20-0.80); NEU # 3.27 K/mm3 (1.40-6.50); PLATELET COUNT 225 K/mm3 (130-400); RED BLOOD COUNT 4.11 M/mm3 (4.10-5.30); RED CELL DISTRIBUTION WIDTH 14.5 % (11.5-14.5); WHITE BLOOD COUNT 4.8 K/mm3 (4.8-10.8)
[2023-11-12 12:22] LABS: ALBUMIN 3.9 g/dL (3.4-4.8); SODIUM 142 mmol/L (136-145)
[2023-11-12 12:23] LABS: CALCIUM 9.2 mg/dL (8.3-10.5)
[2023-11-12 12:24] LABS: GLUCOSE 101 mg/dL (65-105); TOTAL PROTEIN 6.6 g/dL (6.2-8.1)
[2023-11-12 12:25] LABS: CARBON DIOXIDE 26 mmol/L (23-31)
[2023-11-12 12:26] LABS: TOTAL BILIRUBIN 0.33 mg/dL (0.2-1.2)
[2023-11-12 12:30] LABS: AST-SGOT 13 U/L (5-34)
[2023-11-12 12:34] LABS: ALT/SGPT < 6 U/L (0-55)
== END ==
LOC: LAB 12:05
PROVIDERS: Nurse Practitioner
DX: C50.412 Malignant neoplasm of upper-outer quadrant of left female breast (principal)

== ENCOUNTER → 2023-12-11 | Outpatient (CLI) | payer MEDICARE, BC ==
[2023-12-11 17:34] LABS: BASO # 0.05 K/mm3 (0.02-0.10); EOS # 0.34 K/mm3 (0.04-0.40); EOS % 4.6 % (1.0-5.0); HEMATOCRIT 37.7 % (37.0-47.0); HEMOGLOBIN 11.2 g/dL (12.5-16.0); MEAN CELL VOLUME 89 fl (78-100); MEAN CORPUSCULAR HEMOGLOBIN 27 pg (27-31); MEAN CORPUSCULAR HGB CONC 30 g/dL (33-37); MEAN PLATELET VOLUME 9.7 fl (7.4-10.4); MONO # 0.78 K/mm3 (0.20-0.80); NEU # 5.17 K/mm3 (1.40-6.50); PLATELET COUNT 289 K/mm3 (130-400); RED BLOOD COUNT 4.22 M/mm3 (4.10-5.30); RED CELL DISTRIBUTION WIDTH 14.5 % (11.5-14.5); WHITE BLOOD COUNT 7.5 K/mm3 (4.8-10.8)
[2023-12-11 17:38] LABS: SODIUM 142 mmol/L (136-145)
[2023-12-11 17:39] LABS: ALBUMIN 4.1 g/dL (3.4-4.8)
[2023-12-11 17:40] LABS: CALCIUM 9.8 mg/dL (8.3-10.5)
[2023-12-11 17:41] LABS: GLUCOSE 95 mg/dL (65-105); TOTAL PROTEIN 6.8 g/dL (6.2-8.1)
[2023-12-11 17:42] LABS: CARBON DIOXIDE 25 mmol/L (23-31)
[2023-12-11 17:43] LABS: TOTAL BILIRUBIN 0.4 mg/dL (0.2-1.2)
[2023-12-11 17:46] LABS: AST-SGOT 11 U/L (5-34)
[2023-12-11 17:51] LABS: D-DIMER 0.91 mg/L FEU (0.15-0.50)
[2023-12-11 17:53] LABS: ALT/SGPT < 6 U/L (0-55)
== END ==
LOC: LAB 17:10
PROVIDERS: Physician Assistant
DX: E78.2 Mixed hyperlipidemia (principal); R06.09 Other forms of dyspnea

== ENCOUNTER → 2024-05-20 | Outpatient (CLI) | payer MEDICARE, BC, MEDICAID | LOC: RAD 15:52 | DX: R10.32 Left lower quadrant pain (principal) ==

== ENCOUNTER → 2024-05-22 | Outpatient (CLI) | payer MEDICARE, BC ==
[2024-05-22 09:54] LABS: BASO # 0.05 K/mm3 (0.02-0.10); EOS % 3.2 % (1.0-5.0); HEMATOCRIT 40.1 % (37.0-47.0); LYMPH# 0.64 K/mm3 (1.50-4.00); MEAN CELL VOLUME 96 fl (78-100); MEAN CORPUSCULAR HEMOGLOBIN 29 pg (27-31); MEAN CORPUSCULAR HGB CONC 30 g/dL (33-37); MEAN PLATELET VOLUME 9.2 fl (7.4-10.4); MONO # 0.62 K/mm3 (0.20-0.80); NEU # 4.79 K/mm3 (1.40-6.50); PLATELET COUNT 225 K/mm3 (130-400); RED CELL DISTRIBUTION WIDTH 13.9 % (11.5-14.5); WHITE BLOOD COUNT 6.3 K/mm3 (4.8-10.8)
[2024-05-22 10:07] LABS: ALBUMIN 3.8 g/dL (3.4-4.8); SODIUM 141 mmol/L (136-145)
[2024-05-22 10:09] LABS: CALCIUM 9.8 mg/dL (8.3-10.5)
[2024-05-22 10:10] LABS: GLUCOSE 131 mg/dL (65-105); TOTAL PROTEIN 6.9 g/dL (6.2-8.1)
[2024-05-22 10:11] LABS: CARBON DIOXIDE 24 mmol/L (23-31)
[2024-05-22 10:12] LABS: TOTAL BILIRUBIN 0.5 mg/dL (0.2-1.2)
[2024-05-22 10:15] LABS: AST-SGOT 11 U/L (5-34)
[2024-05-22 10:17] LABS: ALT/SGPT < 6 U/L (0-55)
== END ==
LOC: LAB 09:41
PROVIDERS: Physician Assistant
DX: R10.32 Left lower quadrant pain (principal)

== ENCOUNTER → 2024-06-13 | Outpatient (CLI) | payer MEDICARE, BC, MEDICAID | LOC: RAD 09:51 | DX: N18.4 Chronic kidney disease, stage 4 (severe) (principal); I35.9 Nonrheumatic aortic valve disorder, unspecified ==

== ENCOUNTER → 2024-07-03 | Outpatient (CLI) | payer MEDICARE, MEDICAID, BC ==
[2024-07-03 14:56] LABS: ALBUMIN 4.1 g/dL (3.4-4.8)
[2024-07-03 14:57] LABS: CALCIUM 9.4 mg/dL (8.3-10.5)
[2024-07-03 15:41] LABS: PH-URINE 5.5 (5.0 - 8.0); URINE APPEARANCE CLEAR (CLEAR); URINE BILIRUBIN NEGATIVE (NEGATIVE); URINE BLOOD NEGATIVE (NEGATIVE); URINE COLOR YELLOW (YELLOW); URINE GLUCOSE NEGATIVE (NEGATIVE); URINE KETONE NEGATIVE (NEGATIVE); URINE LEUKOCYTE ESTERASE TRACE (NEGATIVE); URINE MUCUS PRESENT (NOT PRESENT); URINE NITRATE NEGATIVE (NEGATIVE); URINE PROTEIN(semi-quant) NEGATIVE (NEGATIVE)
[2024-07-03 22:44] LABS: CREATININE OTHER SOURCE 44 mg/dL (63-166)
== END ==
LOC: LAB 14:25
PROVIDERS: Internal Medicine Nephrology
DX: N18.4 Chronic kidney disease, stage 4 (severe) (principal); R73.01 Impaired fasting glucose

== ENCOUNTER → 2024-09-17 | Outpatient (CLI) | payer MEDICARE, BC, MEDICAID ==
[2024-09-17 11:03] LABS: CALCIUM 9.8 mg/dL (8.3-10.5)
== END ==
LOC: LAB 10:36
PROVIDERS: Internal Medicine Nephrology
DX: N18.4 Chronic kidney disease, stage 4 (severe) (principal)

== ENCOUNTER → 2024-11-10 | Outpatient (CLI) | payer MEDICARE, BC, MEDICAID ==
[2024-11-10 17:36] LABS: BASO # 0.02 K/mm3 (0.02-0.10); EOS # 0.38 K/mm3 (0.04-0.40); EOS % 7.2 % (1.0-5.0); HEMATOCRIT 41.7 % (37.0-47.0); HEMOGLOBIN 12.6 g/dL (12.5-16.0); LYMPH# 1.42 K/mm3 (1.50-4.00); MEAN CELL VOLUME 93 fl (78-100); MEAN CORPUSCULAR HEMOGLOBIN 28 pg (27-31); MEAN CORPUSCULAR HGB CONC 30 g/dL (33-37); MEAN PLATELET VOLUME 9.8 fl (7.4-10.4); MONO # 0.62 K/mm3 (0.20-0.80); NEU # 2.83 K/mm3 (1.40-6.50); PLATELET COUNT 260 K/mm3 (130-400); RED BLOOD COUNT 4.51 M/mm3 (4.10-5.30); WHITE BLOOD COUNT 5.3 K/mm3 (4.8-10.8)
[2024-11-10 17:44] LABS: ALBUMIN 4.2 g/dL (3.4-4.8); SODIUM 141 mmol/L (136-145)
[2024-11-10 17:46] LABS: CALCIUM 9.8 mg/dL (8.3-10.5)
[2024-11-10 17:47] LABS: GLUCOSE 90 mg/dL (65-105); TOTAL PROTEIN 7.5 g/dL (6.2-8.1)
[2024-11-10 17:48] LABS: CARBON DIOXIDE 23 mmol/L (23-31)
[2024-11-10 17:49] LABS: TOTAL BILIRUBIN 0.3 mg/dL (0.2-1.2)
[2024-11-10 17:52] LABS: AST-SGOT 12 U/L (5-34)
[2024-11-10 17:59] LABS: ALT/SGPT < 6 U/L (0-55)
== END ==
LOC: LAB 17:21
PROVIDERS: Nurse Practitioner
DX: C50.412 Malignant neoplasm of upper-outer quadrant of left female breast (principal)

== ENCOUNTER → 2025-01-15 | Outpatient (CLI) | payer MEDICARE, BC, MEDICAID ==
[2025-01-15 16:54] LABS: CALCIUM 9.5 mg/dL (8.3-10.5)
== END ==
LOC: LAB 16:33
PROVIDERS: Internal Medicine Nephrology
DX: N18.4 Chronic kidney disease, stage 4 (severe) (principal)

== ENCOUNTER → 2025-01-27 | Outpatient (CLI) | payer MEDICARE, BC, MEDICAID | LOC: RAD 07:30 | DX: N60.01 Solitary cyst of right breast (principal); C50.412 Malignant neoplasm of upper-outer quadrant of left female breast ==